=== PATIENT | female | born 1950 | race Caucasian/White ===

== ENCOUNTER 2022-03-26 08:45 | Inpatient (IN) ==
[2022-03-26] MEDS ORDERED: *HR* OxyCODONE Immed Rel 5 MG TABLET PO ONE (09:00)
[2022-03-26] MEDS ORDERED: Famotidine 20 MG TABLET PO ONE (09:00)
[2022-03-26] MEDS ORDERED: Pregabalin 75 MG CAPSULE PO ONE (09:00)
[2022-03-26] MEDS ORDERED: CeFAZolin Syr 2,000MG/20 ML 2,000 MG/20 ML SYRINGE IVPB ONE (09:15)
[2022-03-26] MEDS ORDERED: Ringers Solution, Lactated 1,000 ML IVC SCH ×2 (09:15→17:16)
[2022-03-26] MEDS ORDERED: Ondansetron 4 MG/2 ML VIAL IVP PRN (09:28)
[2022-03-26] MEDS: tiZANidine 4 MG TABLET PO SCH ×2 (09:39→16:26)
[2022-03-26] MEDS ORDERED: Albuterol 2.5 MG/3 ML NEBULIZER IH STA (10:19)
[2022-03-26] MEDS ORDERED: Vancomycin 1,000 MG VIAL ONE (10:41)
[2022-03-26] MEDS ORDERED: *HR* FentaNYL (PF) 100 MCG/2 ML VIAL ONE (10:46)
[2022-03-26] MEDS ORDERED: Ondansetron 4 MG/2 ML VIAL ONE (10:46)
[2022-03-26] MEDS ORDERED: *HR* Propofol 200 MG/20 ML VIAL IVP ONE (10:46)
[2022-03-26] MEDS ORDERED: *HR* Rocuronium Bromide 50 MG/5 ML VIAL ONE (10:46)
[2022-03-26] MEDS ORDERED: *HR* Midazolam HCl 2 MG/2 ML VIAL ONE (10:46)
[2022-03-26] MEDS ORDERED: *HR* OxyCODONE Immed Rel 5 MG TABLET PO PRN (15:43)
[2022-03-26] MEDS: *HR* HYDROmorphone PF 0.5 MG/0.5 ML SYRINGE IVP PRN ×2 (15:53→15:58)
[2022-03-26] MEDS: *HR* FentaNYL (PF) 100 MCG/2 ML VIAL IVP PRN ×2 (16:05→16:10)
[2022-03-26] MEDS ORDERED: Ondansetron ODT 4 MG TAB.RAPDIS SL PRN (17:16)
[2022-03-26] MEDS: *HR* OxyCODONE Immed Rel 5 MG TABLET PO PRN (17:27)
[2022-03-26] MEDS: Budesonide/Formoterol 160/4.5 1 PUFF INH IH SCH (20:25)
[2022-03-26] MEDS: *HR* HYDROcodone/Acet 5/325 mg TABLET PO PRN (20:38)
[2022-03-26] MEDS: rOPINIRole 1 MG TABLET PO SCH (20:38)
[2022-03-26] MEDS: Gabapentin 400 MG CAPSULE PO SCH (20:38)
[2022-03-26] MEDS ORDERED: COLESTIPOL HCL 1 GM PO SCH (21:00)
[2022-03-26] MEDS ORDERED: Ipratropium/Albuterol Neb 3 ML IH PRN (21:19)
[2022-03-27] MEDS: *HR* OxyCODONE Immed Rel 5 MG TABLET PO PRN ×3 (01:09→20:21)
[2022-03-27] MEDS: Gabapentin 400 MG CAPSULE PO SCH ×4 (01:09→20:21)
[2022-03-27] MEDS: CeFAZolin 2,000 MG/120 ML BAG IVPB SCH ×3 (01:22→15:41)
[2022-03-27] MEDS: QUEtiapine Fumarate 100 MG TABLET PO SCH ×2 (01:23→20:20)
[2022-03-27] MEDS: *HR* HYDROcodone/Acet 5/325 mg TABLET PO PRN (02:36)
[2022-03-27] MEDS: cloNIDine HCL 0.1 MG TABLET PO SCH ×2 (08:20→20:21)
[2022-03-27] MEDS: *HR* Metformin 500 MG TABLET PO SCH (08:20)
[2022-03-27] MEDS: Furosemide 20 MG TABLET PO SCH (08:20)
[2022-03-27] MEDS: Budesonide/Formoterol 160/4.5 1 PUFF INH IH SCH ×2 (09:50→22:30)
[2022-03-27] MEDS: rOPINIRole 1 MG TABLET PO SCH (20:21)
[2022-03-28] MEDS: *HR* HYDROcodone/Acet 5/325 mg TABLET PO PRN ×2 (07:12→13:25)
[2022-03-28] MEDS: Budesonide/Formoterol 160/4.5 1 PUFF INH IH SCH (07:40)
[2022-03-28] MEDS: Furosemide 20 MG TABLET PO SCH (08:18)
[2022-03-28] MEDS: *HR* Metformin 500 MG TABLET PO SCH (08:18)
[2022-03-28] MEDS: cloNIDine HCL 0.1 MG TABLET PO SCH (08:18)
[2022-03-28] MEDS: Gabapentin 400 MG CAPSULE PO SCH ×2 (08:18→15:10)
[2022-03-28 16:24] VITALS: BP 116/60; PULSE 104; TEMP 98.5; O2SAT 96
[2022-03-28] MEDS: *HR* OxyCODONE Immed Rel 5 MG TABLET PO PRN (16:25)
== END 2022-03-28 18:30 | disposition home health service (06) | DRG 460 ==
LOC: SDCAOSI 08:45 → 4WAOSI 19:25
PROVIDERS: ADMIT Orthopaedic Surgery Orthopaedic Surgery of the Spine; ATTEND Orthopaedic Surgery Orthopaedic Surgery of the Spine